=== PATIENT | male | born 1995 | race Caucasian/White ===

== ENCOUNTER → 2016-09-14 | Outpatient (CLI) | payer BC | END | disposition home or self-care (01) | LOC: C.RDSM 12:47 | PROVIDERS: ATTEND Family Medicine Sports Medicine | DX: M25.512 Pain in left shoulder (principal) ==

== ENCOUNTER → 2016-09-28 | Outpatient (CLI) | payer BC ==
[~2016-09-28] MED LIST: GADAVIST IV PRN
--- NOTE | 2016-09-28 10:32 | DIAGNOSTIC IMAGING REPORT ---
LEFT SHOULDER GADOLINIUM ARTHROGRAM PRE-MRI CLINICAL HISTORY: LEFT SHOULDER PAIN COMPARISON STUDY: Conventional radiographic study dated 09/14/2016 FINDINGS: A timeout was performed. The risks the procedure were explained the patient informed consent was obtained. The patient was prepped and draped in sterile fashion. The skin was anesthetized 1% lidocaine. 40 seconds of fluoroscopic time was utilized. A single fluoroscopic spot image was acquired. Under fluoroscopic guidance, a 22-gauge spinal needle was introduced into the joint capsule left shoulder. A mixture of Optiray 300 and gadolinium was instilled. A fluoroscopic spot image documents intra-articular location of the contrast. IMPRESSION: Successful left shoulder gadolinium arthrographic injection, pre-MRI. Electronically signed by: Salvador Hanley M.D. 09/28/2016 10:30 AM Dictated Date/Time: 09/28/2016 10:29 AM
--- NOTE | 2016-09-28 11:35 | DIAGNOSTIC IMAGING REPORT ---
POST ARTHROGRAM MRI THE LEFT SHOULDER CLINICAL HISTORY: Left shoulder pain status post trauma COMPARISON STUDY: Conventional radiographic study dated 09/14/2016 FINDINGS: Following a gadolinium arthrogram, MRI was performed in the sagittal coronal and axial planes. There are no areas of marrow edema to indicate occult fracture or bone bruise. The glenohumeral ligaments appear intact. The bicipital tendon appears intact. There is a partial thickness bursal surface tear of the supraspinatus insertion. No full-thickness tear is evident. There is no evidence of labral tear. IMPRESSION: 1. No evidence of occult fracture 2. Partial thickness bursal surface tear of the supraspinatus insertion. 3. No evidence of full-thickness rotator cuff tear. No evidence of labral tear. Electronically signed by: Salvador Hanley M.D. 09/28/2016 12:01 PM Dictated Date/Time: 09/28/2016 11:22 AM
== END | disposition home or self-care (01) ==
LOC: C.MRIBC 09:46
PROVIDERS: ATTEND Family Medicine Sports Medicine
DX: S46.012A Strain of muscle(s) and tendon(s) of the rotator cuff of left shoulder, initial encounter (principal); X58.XXXA Exposure to other specified factors, initial encounter